=== PATIENT | male | born 1995 | race Caucasian/White ===

== ENCOUNTER 2018-09-09 20:10 | Emergency (ER) | payer OTHER ==
[2018-09-09] MEDS ORDERED: Lidocaine 1% with EPINEPHrine 1:100,000 20 ML MDV INJECT ONE (20:29)
[2018-09-09] MEDS ORDERED: Cephalexin 500 MG Cap PO ONE (20:29)
--- NOTE | 2018-09-09 20:35 | EDM.PDOC ---
ED HPI GENERAL MEDICAL PROBLEM - General Chief Complaint: Skin Complaint Stated Complaint: FISH HOOK STUCK IN LEFT HAND Time Seen by Provider: 09/09/18 20:26 - History of Present Illness INITIAL COMMENTS - FREE TEXT/NARRATIVE: HISTORY AND PHYSICAL: History of present illness: The patient is a healthy 22-year-old male who says he is up-to-date on his tetanus shot a presents after getting a fish hook stuck into the thenar eminence near his thumb on his left hand. The patient says he is right-hand dominant and he attempted to try to extract this with pliers but says that it's really stuck. He has no other complaints and says he only has localized pain to the area and has full motion of his thumb and the remainder of the digits of the left hand. He says he has no other associated injuries and was in his usual state of good health prior to these events. Review of systems: As per history of present illness and below otherwise all systems reviewed and negative. Past medical history: As per history of present illness and as reviewed below otherwise noncontributory. Surgical history: As per history of present illness and as reviewed below otherwise noncontributory. Social history: No reported history of drug or alcohol abuse. Family history: As per history of present illness and as reviewed below otherwise noncontributory. Physical exam: General: Well-developed well-nourished man who is nontoxic and vital signs are noted by me HEENT: Atraumatic, normocephalic, negative for conjunctival pallor or scleral icterus, mucous membranes moist, throat clear, neck supple, nontender, trachea midline. Lungs: Clear to auscultation, breath sounds equal bilaterally, chest nontender. Heart: S1S2, regular rate and rhythm no overt murmurs Abdomen: Soft, nondistended, nontender. NABS Pelvis: Deferred Genitourinary: Deferred. Rectal: Deferred. Extremities: Atraumatic, full range of motion of all extremities with the exception of the left hand where at the thenar eminence a fishhook is seen stuck with no surrounding erythema and minimal soft tissue swelling. The patient can oppose flex and extend at the thumb without deficits. Neurovascular unremarkable. Neuro: Awake, alert, oriented. Cranial nerves II through XII unremarkable. Cerebellum unremarkable. Motor and sensory unremarkable throughout. Exam nonfocal. Diagnostics: X-ray left hand Therapeutics: Keflex, lidocaine with epinephrine for hook removal I discussed with the patient that due to the direction of the bevel certain text weeks to remove this are not available and due to the location of where this with he has I cannot push it through cut off the bevel tip and remove the clock. He is aware that we'll need to know him the area locally extend the opening where the hook is penetrating and remove the clock manually. He understands there will be tissue damage with this and he will need to be followed by a hand specialist for possible infection although we will cover him with Keflex. He states understanding. Procedure note: After the procedure was explained to the patient and the x-ray was reviewed area of the hand was infused with lidocaine with epinephrine in a local fashion and prepped with Betadine. Using an 11 blade scalpel the entry point was extended and the hook was removed with manual traction without complication. Bleeding was controlled. There were no complications the patient tolerated the procedure well. Bacitracin and a gauze dressing were placed. This procedure was performed by William Vallejo NP. Impression: Hannah to left hand/puncture wound with tissue damage Definitive disposition and diagnosis as appropriate pending reevaluation and review of above. Left Hand Pain Score (Numeric/FACES): 5 - Related Data Allergies Allergy/AdvReac Type Severity Reaction Status Date / Time No Known Allergies Allergy Verified 09/09/18 20:29 Home Meds: Home Meds . [No Known Home Meds] 03/14/18 [History] Past Medical History - Past Surgical History HEENT Surgical History: Reports: Oral Surgery Social & Family History - Family History Family Medical History: Noncontributory - Caffeine Use Caffeine Use: Reports: None ED ROS GENERAL - Review of Systems Review Of Systems: ROS reveals no pertinent complaints other than HPI. ED EXAM, SKIN/RASH Exam: See Below (See dictation) Course - Vital Signs Last Recorded V/S: Last Vital Signs Temp 36.6 C 09/09/18 20:26 Pulse 88 09/09/18 20:26 Resp 18 09/09/18 20:26 BP 123/65 09/09/18 20:26 Pulse Ox 98 09/09/18 20:26 - Orders/Labs/Meds Meds: Medications Discontinued Medications Generic Name Dose Route Start Last Admin Trade Name Freq PRN Reason Stop Dose Admin Cephalexin 500 mg 09/09/18 20:29 09/09/18 20:40 Keflex PO 09/09/18 20:30 500 mg ONETIME ONE Administration Lidocaine/Epinephrine 20 ml 09/09/18 20:29 09/09/18 20:40 Xylocaine 1% With Epinephrine 1:100,000 INJECT 09/09/18 20:30 20 ml ONETIME ONE Administration Departure - Departure Time of Disposition: 21:53 Disposition: Home, Self-Care 01 Condition: Good Clinical Impression: Puncture wound of left hand Qualifiers: Encounter type: initial encounter Foreign body presence: with foreign body Qualified Code(s): S61.442A - Puncture wound with foreign body of left hand, initial encounter - Discharge Information Referrals: PCP,None [Primary Care Provider] - Forms: ED Department Discharge Additional Instructions: The following information is given to patients seen in the emergency department who are being discharged to home. This information is to outline your options for follow-up care. We provide all patients seen in our emergency department with a follow-up referral. The need for follow-up, as well as the timing and circumstances, are variable depending upon the specifics of your emergency department visit. If you don't have a primary care physician on staff, we will provide you with a referral. We always advise you to contact your personal physician following an emergency department visit to inform them of the circumstance of the visit and for follow-up with them and/or the need for any referrals to a consulting specialist. The emergency department will also refer you to a specialist when appropriate. This referral assures that you have the opportunity for followup care with a specialist. All of these measure are taken in an effort to provide you with optimal care, which includes your followup. Under all circumstances we always encourage you to contact your private physician who remains a resource for coordinating your care. When calling for followup care, please make the office aware that this follow-up is from your recent emergency room visit. If for any reason you are refused follow-up, please contact the [facility] emergency department at and ask to speak to the emergency department charge nurse. Dr. Mango Mcallister [facility] [address] [place] [id number] @ Dr Bolaños & Dr Fermin [facility] [address] [place] [address] @ Dr Antony [facility] [address] [facility] [id number] Keep the wound clean and dry using mild soap and water patch and apply bacitracin or Neosporin. This is a puncture wound and has a possibility for infection so you have been placed on Keflex for prophylaxis. Please call and schedule a follow-up appointment with one of our hand specialist using resources given to above keeping in mind that the closest would be at [facility]. Our hand specialist is on maternity leave and is not available for follow-up cases. Return to ER as needed and as discussed
--- NOTE | 2018-09-09 21:22 | CR ---
INDICATION: Foreign body TECHNIQUE: Hand radiograph 2 views left COMPARISON: None FINDINGS: Bone: No acute fractures or aggressive bone lesions are identified. Joint: The carpal and metacarpal-phalangeal joints are unremarkable in appearance. The interphalangeal joints are normal in appearance. Soft tissue: A multi-pronged metallic hook is seen in the soft tissues of the thenar eminence. IMPRESSIONS: 1. No acute osseous injuries or abnormalities are noted. 2. A multi-pronged metallic hook is seen in the soft tissues of the thenar eminence. Dictated by Chandana Fink MD @ 09/09/2018 9:20:48 PM Dictated by: Chandana Fink MD @ 09/09/2018 21:21:05 (Electronically Signed)
[2018-09-09] MEDS ORDERED: Bacitracin Oint 1 GM U/D Packet TOP ONE (21:54)
== END 2018-09-09 22:05 | disposition home or self-care (01) ==
LOC: MW.ED 20:10
DX: S61.442A Puncture wound with foreign body of left hand, initial encounter (principal); Z98.890 Other specified postprocedural states; W45.8XXA Other foreign body or object entering through skin, initial encounter
CPT/HCPCS: 10120; 73120; 99283; A9270

== ENCOUNTER 2019-03-16 20:25 | Emergency (ER) | payer OTHER ==
--- NOTE | 2019-03-16 20:37 | EDM.PDOC ---
ED HPI GENERAL MEDICAL PROBLEM - General Chief Complaint: General Stated Complaint: DIZZY, COLD AND COUGHING Time Seen by Provider: 03/16/19 20:36 Source of Information: Reports: Patient History Limitations: Reports: No Limitations - History of Present Illness INITIAL COMMENTS - FREE TEXT/NARRATIVE: HISTORY AND PHYSICAL: History of present illness: Patient is a 23-year-old male presents to the ED today with concern of cough, sore throat, and generalized body aches over the past 1-2 days. Patient states he does smoke about one cigarette a day and also uses the vaporizer daily. Patient states that he has been taking some [id number] cold medication with mild relief of symptoms. Patient denies any health history or any other symptoms or concerns. Patient denies fever, chills, chest pain, shortness of breath. Denies headache, neck stiff ness, change in vision, syncope, or near syncope. Denies nausea, vomiting, abdominal pain, diarrhea, constipation, or dysuria. Has not noted any blood in urine or stool. Patient has been eating and drinking appropriately. Review of systems: As per history of present illness and below otherwise all systems reviewed and negative. Past medical history: As per history of present illness and as reviewed below otherwise noncontributory. Surgical history: As per history of present illness and as reviewed below otherwise noncontributory. Social history: See social history for further information Family history: As per history of present illness and as reviewed below otherwise noncontributory. Physical exam: General: Patient is alert, oriented, and in no acute distress. Patient laying comfortably on exam table. HEENT: Atraumatic, normocephalic, pupils equal and reactive bilaterally, negative for conjunctival pallor or scleral icterus, mucous membranes moist, TMs normal bilaterally, throat clear, neck supple, nontender, trachea midline. No drooling or trismus noted. No meningeal signs. No hot potato voice noted. Lungs: Clear to auscultation, breath sounds equal bilaterally, chest nontender. Dry cough on exam Heart: S1S2, regular rate and rhythm without overt murmur Abdomen: Soft, nondistended, nontender. Negative for masses or hepatosplenomegaly. Negative for costovertebral tenderness. Pelvis: Stable nontender. Genitourinary: Deferred. Rectal: Deferred. Skin: Intact, warm, dry. No lesions or rashes noted. Extremities: Atraumatic, negative for cords or calf pain. Neurovascular unremarkable. Neuro: Awake, alert, oriented. Cranial nerves II through XII unremarkable. Cerebellum unremarkable. Motor and sensory unremarkable throughout. Exam nonfocal. Notes: Discussed the importance for follow-up with primary care provider. Voices understanding and is agreeable to plan of care. Denies any further questions or concerns at this time. Diagnostics: EKG, chest x-ray, influenza, strep Therapeutics: Duoneb, Solumedrol Prescription: Proair inhaler, Tamiflu Impression: Influenza B Plan: 1. Take medication as prescribed. You can alternate ibuprofen and Tylenol as directed for pain or discomfort. 2. Follow-up with a primary care provider as discussed. Return to ED as needed and as discussed. Definitive disposition and diagnosis as appropriate pending reevaluation and review of above. Generalized Pain Score (Numeric/FACES): 7 - Related Data Allergies Allergy/AdvReac Type Severity Reaction Status Date / Time No Known Allergies Allergy Verified 03/16/19 20:30 Home Meds: Home Meds Albuterol Sulfate [Proair Hfa] 8.5 gm IH Q8HR PRN #1 [email or web address] 03/16/19 [Rx] methylPREDNISolone [Medrol] 4 mg PO ASDIRECTED #1 dosepk 03/16/19 [Rx] Past Medical History - Infectious Disease History Infectious Disease History: Reports: None - Past Surgical History HEENT Surgical History: Reports: Oral Surgery Social & Family History - Family History Family Medical History: Noncontributory - Tobacco Use Smoking Status *Q: Never Smoker Second Hand Smoke Exposure: No - Caffeine Use Caffeine Use: Reports: None - Recreational Drug Use Recreational Drug Use: No ED ROS GENERAL - Review of Systems Review Of Systems: Comprehensive ROS is negative, except as noted in HPI. ED EXAM, GENERAL - Physical Exam Exam: See Below (see dictation) Course - Vital Signs Last Recorded V/S: Last Vital Signs Temp 98.8 F 03/16/19 20:31 Pulse 96 03/16/19 20:31 Resp 16 03/16/19 20:31 BP 135/75 03/16/19 20:31 Pulse Ox 96 03/16/19 20:31 - Orders/Labs/Meds Orders: Active Orders 24 hr Category Date Time Status EKG Documentation Completion [RC] STAT Care 03/16/19 20:41 Active RT Aerosol Therapy [RC] ASDIRECTED Care 03/16/19 20:43 Active CBC WITH AUTO DIFF [HEME] Stat Lab 03/16/19 20:41 Stop Req COMPREHENSIVE METABOLIC PN,CMP [CHEM] Stat Lab 03/16/19 20:41 Stop Req CULTURE STREP A CONFIRMATION [RM] Stat Lab 03/16/19 20:44 Results STREP SCRN A RAPID W CULT CONF [RM] Stat Lab 03/16/19 20:44 Results UA RFX MADYSON AND CULT IF INDIC [URIN] Stat Lab 03/16/19 21:12 Stop Req Meds: Medications Discontinued Medications Generic Name Dose Route Start Last Admin Trade Name Freq PRN Reason Stop Dose Admin Albuterol/Ipratropium 3 ml 03/16/19 20:43 03/16/19 20:52 Duoneb 3.0-0.5 Mg/3 Ml NEB 03/16/19 20:44 3 ml ONETIME ONE Administration Methylprednisolone Sodium Succinate 125 mg 03/16/19 20:43 03/16/19 20:52 Solu-Medrol IM 03/16/19 20:44 125 mg ONETIME ONE Administration Departure - Departure Time of Disposition: 21:16 Disposition: Home, Self-Care 01 Clinical Impression: Influenza B - Discharge Information Prescriptions: Albuterol Sulfate [Proair Hfa] 8.5 gm IH Q8HR PRN #1 [id number] PRN Reason: Cough methylPREDNISolone [Medrol] 4 mg PO ASDIRECTED #1 dosepk Referrals: PCP,None [Primary Care Provider] - Forms: ED Department Discharge Additional Instructions: The following information is given to patients seen in the emergency department who are being discharged to home. This information is to outline your options for follow-up care. We provide all patients seen in our emergency department with a follow-up referral. The need for follow-up, as well as the timing and circumstances, are variable depending upon the specifics of your emergency department visit. If you don't have a primary care physician on staff, we will provide you with a referral. We always advise you to contact your personal physician following an emergency department visit to inform them of the circumstance of the visit and for follow-up with them and/or the need for any referrals to a consulting specialist. The emergency department will also refer you to a specialist when appropriate. This referral assures that you have the opportunity for follow-up care with a specialist. All of these measure are taken in an effort to provide you with optimal care, which includes your follow-up. Under all circumstances we always encourage you to contact your private physician who remains a resource for coordinating your care. When calling for follow-up care, please make the office aware that this follow-up is from your recent emergency room visit. If for any reason you are refused follow-up, please contact the [facility] Emergency Department at and asked to speak to the emergency department charge nurse. [facility] [address] [place] [id number] [facility] [address] [place] [id number] 1. Take medication as prescribed. You can alternate ibuprofen and Tylenol as directed for pain or discomfort. 2. Follow-up with a primary care provider as discussed. Return to ED as needed and as discussed. Sepsis Event Note - Evaluation Sepsis Screening Result: No Definite Risk - Focused Exam Vital Signs: Vital Signs Temp Pulse Resp BP Pulse Ox 03/16/19 20:31 98.8 F 96 16 135/75 96 Date Exam was Performed: 03/16/19 Time Exam was Performed: 21:16 - My Orders Last 24 Hours: My Active Orders 03/16/19 20:41 EKG Documentation Completion [RC] STAT CBC WITH AUTO DIFF [HEME] Stat COMPREHENSIVE METABOLIC PN,CMP [CHEM] Stat 03/16/19 20:43 RT Aerosol Therapy [RC] ASDIRECTED 03/16/19 20:44 CULTURE STREP A CONFIRMATION [RM] Stat STREP SCRN A RAPID W CULT CONF [RM] Stat 03/16/19 21:12 UA RFX MADYSON AND CULT IF INDIC [URIN] Stat - Assessment/Plan Last 24 Hours: My Active Orders 03/16/19 20:41 EKG Documentation Completion [RC] STAT CBC WITH AUTO DIFF [HEME] Stat COMPREHENSIVE METABOLIC PN,CMP [CHEM] Stat 03/16/19 20:43 RT Aerosol Therapy [RC] ASDIRECTED 03/16/19 20:44 CULTURE STREP A CONFIRMATION [RM] Stat STREP SCRN A RAPID W CULT CONF [RM] Stat 03/16/19 21:12 UA RFX MADYSON AND CULT IF INDIC [URIN] Stat
[2019-03-16] MEDS ORDERED: methylPREDNISolone Sodium Succinate 125 MG/2 ML SDV IM ONE (20:43)
[2019-03-16] MEDS ORDERED: Albuterol/Ipratropium 3.0-0.5 MG/3 ML Neb Soln NEB ONE (20:43)
--- NOTE | 2019-03-16 20:59 | CR ---
INDICATION: Cough, flu like symptoms TECHNIQUE: Chest radiograph 2 views COMPARISON: None FINDINGS: Mediastinum: The mediastinum is normal in appearance. The heart silhouette is normal in size and morphology. Lung: Both lungs are unremarkable in appearance. No sign of pleural effusion seen. No pneumothorax is identified. Bone and Soft tissue: Unremarkable for age. IMPRESSION: 1. No acute cardiopulmonary disease is seen. Dictated by: Chandana Fink MD @ 03/16/2019 20:57:54 (Electronically Signed)
== END 2019-03-16 21:27 | disposition home or self-care (01) ==
LOC: MW.ED 20:25
DX: J10.1 Influenza due to other identified influenza virus with other respiratory manifestations (principal)
CPT/HCPCS: 71046; 87081; 87804; 87880; 93005; 94640; 96372; 99284; J2930; 99283; J7620-GY

== ENCOUNTER 2020-11-02 19:57 | Emergency (ER) | payer BC, OTHER ==
[2020-11-02] MEDS ORDERED: Sodium Chloride 0.9% 1,000 ML IV ONE (20:18)
[2020-11-02] MEDS: Ketorolac 30 MG/ML SDV IVPUSH ONE ×2 (20:33→21:06)
--- NOTE | 2020-11-02 20:45 | EDM.PDOC ---
ED HPI GENERAL MEDICAL PROBLEM - General Chief Complaint: General Stated Complaint: TROUBLE BREATHING BODY ACHES Time Seen by Provider: 11/02/20 20:12 Source of Information: Reports: Patient History Limitations: Reports: No Limitations - History of Present Illness INITIAL COMMENTS - FREE TEXT/NARRATIVE: HISTORY AND PHYSICAL: History of present illness: Patient is a 25-year-old male who presents to the emergency room with complaints of multiple symptoms. He states for the past 2 to 3 days he has had generalized body aches, bilateral flank pain, headache with intermittent blurred vision of the left eye, cough and shortness of breath. This morning he had woke up and voided, noting that the urine was pink-tinged and was concerned he was urinating blood. Patient denies any fever, chills, syncope or near syncope. Denies any abdominal pain, nausea, vomiting, diarrhea, constipation or dysuria. Denies any testicular pain, redness or swelling. No concern for STIs. Has not noted any bloody stools. Patient has been eating and drinking appropriately. Denies any recent travel. No known sick contacts. Review of systems: As per history of present illness and below otherwise all systems reviewed and negative. Past medical history: As per history of present illness and as reviewed below otherwise noncontributory. Surgical history: As per history of present illness and as reviewed below otherwise noncontributory. Social history: See social history for further information Family history: As per history of present illness and as reviewed below otherwise non contributory. Physical exam: General: Well developed and well nourished 25-year-old male. Alert and orientated x 3. Nontoxic in appearance and in no acute distress. Vital signs are stable and have been reviewed by me. Nursing notes were reviewed. HEENT: Atraumatic, normocephalic, pupils equal and reactive bilaterally, negative for conjunctival pallor or scleral icterus, mucous membranes moist, t rachea midline. No drooling or trismus noted. No meningeal signs. No hot potato voice noted. Lungs: Clear to auscultation bilaterally. No wheezes, rales, or rhonchi. Chest nontender. Normal work of breathing, no accessory muscles used. Heart: S1S2, regular rate and rhythm without overt murmur, gallops, or rubs. No JVD. No peripheral edema Abdomen: Soft, nondistended, nontender. Normoactive bowel sounds. Negative for masses. Bilateral costovertebral tenderness. Pelvis: Stable nontender. Skin: Intact, warm, dry. No lesions or rashes noted. Hematologic: No petechiae or purpra. Mucosa appropriate color and normal nail bed color and refill. Extremities: Atraumatic, moves all extremities per self without difficulty or deficits, negative for cords or calf pain. Neurovascular unremarkable. Neuro: Awake, alert, oriented. Cranial nerves II through XII unremarkable. Cerebellum unremarkable. Motor and sensory unremarkable throughout. Exam nonfocal. Psychiatric: Mood and affect are appropriate. Normal thought process. Answering questions appropriately. Notes: *This patient was seen and evaluated during the 2019 SARS-CoV-2 novel coronavirus pandemic period. Community viral transmission is ongoing at time of this encounter and the emergency department is operating under pandemic response procedures. Patient is a 25-year-old male who presents to the emergency room with multiple complaints including hematuria, headache with blurred vision of the left eye, cough, shortness of breath and headache. Patient's physical exam is unremarkable with the exception of bilateral flank pain to palpation. I do note that the patient is wearing a weightlifting T-Shirt, he did inquire about use of steroids or new supplements, he denies. We will do basic lab work and head CT as he states he typically does not get headaches and is concerned about the blurred vision. CXR shows no pleural effusion or pneumothorax. Faint density adjacent to the left heart border consistent with minimal atelectasis or pneumonia. Patient did test positive for COVID-19. His vital signs remained stable. Lab work is otherwise unremarkable. I have talked with the patient about today's findings, in addition to providing specific details for plan of care. Reassessment at the time of disposition demonstrates that the patient is in no acute distress. The patient is stable for discharge, counseling was provided and we discussed in great detail signs and symptoms that would prompt them to return to the Emergency Department. Medication, follow up and supportive care measures were reviewed and discussed. Voices understanding and is agreeable to plan of care. Denies any further questions or concerns at this time. Diagnostics: CBC, CMP, UA, CPK, chest x-ray, Covid, strep, head CT Therapeutics: IV fluid, Toradol Prescription: Tylenol with codeine Impression: COVID-19 Plan: 1. Your COVID-19 screening is positive. That means you do have the coronavirus and you are considered contagious. Your vital signs and oxygen saturation are well enough that you were able to monitor your symptoms at home. Continue to monitor for trouble breathing, new confusion or inability to arouse, bluish lips or face or any of the other symptoms we discussed -if this occurs please return to the emergency room immediately. 2. Please self quarantine until cleared by [facility] Department. Inform any persons that you have been in contact with since you started becoming symptomatic that you have tested positive; they should be made aware and take the appropriate steps as needed. 3. You can take NyQuil during the evening to help get a restful night sleep. May alternate Tylenol and ibuprofen as needed for pain and fever management. 4. The [facility] department will be calling you and following up with you. The [place] COVID 19 Hotline phone number , They are open Sunday - Sunday 7am - 7pm. Follow up with your primary care provider for re-evaluation as directed. Definitive disposition and diagnosis as appropriate pending reevaluation and review of above. chest pain Pain Score (Numeric/FACES): 5 - Related Data Allergies Allergy/AdvReac Type Severity Reaction Status Date / Time No Known Allergies Allergy Verified 11/02/20 20:06 Home Meds: Home Meds Dextroamphetamine/Amphetamine [Adderall 20 mg Tablet] 20 mg PO DAILY 11/02/20 [History] Past Medical History Cardiovascular History: Reports: None Respiratory History: Reports: None Gastrointestinal History: Reports: None Genitourinary History: Reports: None Musculoskeletal History: Reports: None Neurological History: Reports: None Psychiatric History: Reports: ADHD Endocrine/Metabolic History: Reports: None Insulin Pump Model and Laboratory Worker: None Hematologic History: Reports: None Immunologic History: Reports: None Oncologic (Cancer) History: Reports: None Dermatologic History: Reports: None - Infectious Disease History Infectious Disease History: Reports: None - Past Surgical History Head Surgeries/Procedures: Reports: None HEENT Surgical History: Reports: Oral Surgery Social & Family History - Family History Family Medical History: No Pertinent Family History - Caffeine Use Caffeine Use: Reports: None ED ROS GENERAL - Review of Systems Review Of Systems: Comprehensive ROS is negative, except as noted in HPI. ED EXAM, GENERAL - Physical Exam Exam: See Below (See dictation) Course - Vital Signs Last Recorded V/S: Last Vital Signs Temp 97.5 F 11/02/20 20:07 Pulse 89 11/02/20 20:07 Resp 18 11/02/20 20:07 BP 131/77 11/02/20 20:07 Pulse Ox 97 11/02/20 20:07 - Orders/Labs/Meds Labs: Laboratory Tests 11/02/20 11/02/20 11/02/20 Range/Units 20:44 20:44 21:00 WBC 4.79 (4.0-11.0) K/uL RBC 4.77 (4.50-5.90) M/uL Hgb 14.6 (13.0-17.0) g/dL Hct 42.6 (38.0-50.0) % MCV 89.3 (80.0-98.0) fL MCH 30.6 (27.0-32.0) pg MCHC 34.3 (31.0-37.0) g/dL RDW Std Deviation 44.8 (28.0-62.0) fl RDW Coeff of Angella 14 (11.0-15.0) % Plt Count 139 L (150-400) K/uL MPV 11.10 (7.40-12.00) fL Neut % (Auto) 53.7 (48.0-80.0) % Lymph % (Auto) 27.1 (16.0-40.0) % [place] % (Auto) 19.0 H (0.0-15.0) % Eos % (Auto) 0.2 (0.0-7.0) % Baso % (Auto) 0.0 (0.0-1.5) % Neut # (Auto) 2.6 (1.4-5.7) K/uL Lymph # (Auto) 1.3 (0.6-2.4) K/uL [place] # (Auto) 0.9 H (0.0-0.8) K/uL Eos # (Auto) 0.0 (0.0-0.7) K/uL Baso # (Auto) 0.0 (0.0-0.1) K/uL Nucleated RBC % 0.0 /100WBC Nucleated RBCs # 0 K/uL Sodium (136-148) mmol/L Potassium (3.5-5.1) mmol/L Chloride (98-107) mmol/L Carbon Dioxide (21.0-32.0) mmol/L BUN (7.0-18.0) mg/dL Creatinine (0.8-1.3) mg/dL Est Cr Clr Drug Dosing mL/min Estimated GFR (MDRD) ml/min Glucose (74-106) mg/dL Calcium (8.5-10.1) mg/dL Total Bilirubin (0.2-1.0) mg/dL AST (15-37) IU/L ALT (14-63) IU/L Alkaline Phosphatase (46-116) U/L Creatine Kinase (26-308) U/L Total Protein (6.4-8.2) g/dL Albumin (3.4-5.0) g/dL Globulin (2.6-4.0) g/dL Albumin/Globulin Ratio (0.9-1.6) Urine Color Urine Appearance Urine pH (5.0-8.0) Ur Specific [place] (1.001-1.035) Urine Protein (NEGATIVE) mg/dL Urine Glucose (UA) (NEGATIVE) mg/dL Urine Ketones (NEGATIVE) mg/dL Urine Occult Blood (NEGATIVE) Urine Nitrite (NEGATIVE) Urine Bilirubin (NEGATIVE) Urine Urobilinogen (<2.0) EU/dL Ur Leukocyte Esterase (NEGATIVE) SARS-CoV-2 RNA (LE) POSITIVE H (NEGATIVE) Group A Strep (PCR) NOT DETECTED (NOT DETECT) 11/02/20 11/02/20 Range/Units 21:00 21:02 WBC (4.0-11.0) K/uL RBC (4.50-5.90) M/uL Hgb (13.0-17.0) g/dL Hct (38.0-50.0) % MCV (80.0-98.0) fL MCH (27.0-32.0) pg MCHC (31.0-37.0) g/dL RDW Std Deviation (28.0-62.0) fl RDW Coeff of Angella (11.0-15.0) % Plt Count (150-400) K/uL MPV (7.40-12.00) fL Neut % (Auto) (48.0-80.0) % Lymph % (Auto) (16.0-40.0) % [place] % (Auto) (0.0-15.0) % Eos % (Auto) (0.0-7.0) % Baso % (Auto) (0.0-1.5) % Neut # (Auto) (1.4-5.7) K/uL Lymph # (Auto) (0.6-2.4) K/uL [place] # (Auto) (0.0-0.8) K/uL Eos # (Auto) (0.0-0.7) K/uL Baso # (Auto) (0.0-0.1) K/uL Nucleated RBC % /100WBC Nucleated RBCs # K/uL Sodium 142 (136-148) mmol/L Potassium 3.8 (3.5-5.1) mmol/L Chloride 108 H (98-107) mmol/L Carbon Dioxide 25.6 (21.0-32.0) mmol/L BUN 11 (7.0-18.0) mg/dL Creatinine 1.4 H (0.8-1.3) mg/dL Est Cr Clr Drug Dosing 74.76 mL/min Estimated GFR (MDRD) > 60.0 ml/min Glucose 96 (74-106) mg/dL Calcium 8.3 L (8.5-10.1) mg/dL Total Bilirubin 0.3 (0.2-1.0) mg/dL AST 20 (15-37) IU/L ALT 29 (14-63) IU/L Alkaline Phosphatase 58 (46-116) U/L Creatine Kinase 192 (26-308) U/L Total Protein 6.7 (6.4-8.2) g/dL Albumin 3.8 (3.4-5.0) g/dL Globulin 2.9 (2.6-4.0) g/dL Albumin/Globulin Ratio 1.3 (0.9-1.6) Urine Color YELLOW Urine Appearance CLEAR Urine pH 5.5 (5.0-8.0) Ur Specific [place] >= 1.030 (1.001-1.035) Urine Protein NEGATIVE (NEGATIVE) mg/dL Urine Glucose (UA) NEGATIVE (NEGATIVE) mg/dL Urine Ketones NEGATIVE (NEGATIVE) mg/dL Urine Occult Blood NEGATIVE (NEGATIVE) Urine Nitrite NEGATIVE (NEGATIVE) Urine Bilirubin NEGATIVE (NEGATIVE) Urine Urobilinogen 0.2 (<2.0) EU/dL Ur Leukocyte Esterase NEGATIVE (NEGATIVE) SARS-CoV-2 RNA (LE) (NEGATIVE) Group A Strep (PCR) (NOT DETECT) Meds: Medications Discontinued Medications Generic Name Dose Route Start Last Admin Trade Name Martínq PRN Reason Stop Dose Admin Sodium Chloride 1,000 mls @ 999 mls/hr 11/02/20 20:18 11/02/20 20:32 Normal Saline IV 11/02/20 21:18 999 mls/hr STAT ONE Administration Ketorolac Tromethamine 30 mg 11/02/20 20:18 11/02/20 21:06 Ketorolac 30 Mg/Ml Sdv IVPUSH 11/02/20 20:19 Not Given ONETIME ONE Departure - Departure Time of Disposition: 21:55 Disposition: Home, Self-Care 01 Clinical Impression: COVID-19 - Discharge Information Instructions: COVID-19 Referrals: PCP,None [Primary Care Provider] - Forms: ED Department Discharge Additional Instructions: The following information is given to patients seen in the emergency department who are being discharged to home. This information is to outline your options for follow-up care. We provide all patients seen in our emergency department with a follow-up referral. The need for follow-up, as well as the timing and circumstances, are variable depending upon the specifics of your emergency department visit. If you don't have a primary care physician on staff, we will provide you with a referral. We always advise you to contact your personal physician following an emergency department visit to inform them of the circumstance of the visit and for follow-up with them and/or the need for any referrals to a consulting specialist. The emergency department will also refer you to a specialist when appropriate. This referral assures that you have the opportunity for follow-up care with a specialist. All of these measure are taken in an effort to provide you with optimal care, which includes your follow-up. Under all circumstances we always encourage you to contact your private physician who remains a resource for coordinating your care. When calling for follow-up care, please make the office aware that this follow-up is from your recent emergency room visit. If for any reason you are refused follow-up, please contact the [facility] Emergency Department at and asked to speak to the emergency department charge nurse. [facility] [address] [place] [address] [facility] [address] [place] [address] Thank you for choosing the [facility] emergency department in [place] for your medical needs today. It was a pleasure caring for you. Today you were seen in the emergency department for COVID-19. 1. Your COVID-19 screening is positive. That means you do have the coronavirus and you are considered contagious. Your vital signs and oxygen saturation are well enough that you were able to monitor your symptoms at home. Continue to monitor for trouble breathing, new confusion or inability to arouse, bluish lips or face or any of the other symptoms we discussed -if this occurs please return to the emergency room immediately. 2. Please self quarantine until cleared by [facility] Department. Inform any persons that you have been in contact with since you started becoming symptomatic that you have tested positive; they should be made aware and take the appropriate steps as needed. 3. You can take NyQuil during the evening to help get a restful night sleep. May alternate Tylenol and ibuprofen as needed for pain and fever management. 4. The [facility] department will be calling you and following up with you. The [place] COVID 19 Hotline phone number , They are open Sunday - Sunday 7am - 7pm. Follow up with your primary care provider for re-evaluation as directed. Sepsis Event Note (ED) - Evaluation Sepsis Screening Result: No Definite Risk - Focused Exam Vital Signs: Vital Signs Temp Pulse Resp BP Pulse Ox 11/02/20 20:07 97.5 F 89 18 131/77 97
--- NOTE | 2020-11-02 20:57 | CR ---
Indication: Cough Technique: Chest 1 view Comparison: Chest x-ray 03/16/2019 Findings/Impression: Cardiovascular and mediastinum: Heart size and vasculature are normal in caliber and appearance. Lungs and pleural space: No pleural effusion or pneumothorax. Faint density adjacent to the left heart border consistent with minimal atelectasis or pneumonia. Bones and soft tissues: No acute findings. Dictated by Maverick Rice MD @ 11/02/2020 8:56:[address] Maverick Rice @ Nov 02 2020 8:56PM
--- NOTE | 2020-11-02 21:03 | CT ---
INDICATION: Headache and blurred vision TECHNIQUE: CT head without contrast. COMPARISON: None. FINDINGS: CSF spaces: Within normal limits for age. Brain parenchyma: The allison-white differentiation is normal. No sign of mass, hemorrhage, or midline shift. Skull base and calvarium: Minimal mucus retention cysts maxillary sinuses. The visualized orbits are grossly unremarkable. No skull fractures. IMPRESSION: Unremarkable noncontrast head CT. Please note that all CT scans at this facility use dose modulation, iterative reconstruction, and/or weight-based dosing when appropriate to reduce radiation dose to as low as reasonably achievable. Dictated by Maverick Rice MD @ 11/02/2020 9:01:[address] Maverick Rice @ Nov 02 2020 9:01PM
[2020-11-02 21:49] LABS: BLOOD UREA NITROGEN,BUN 11 mg/dL (7.0-18.0); CARBON DIOXIDE,CO2 25.6 mmol/L (21.0-32.0); CHLORIDE,CL 108 mmol/L (98-107); GLUCOSE RANDOM 96 mg/dL (74-106); POTASSIUM,K 3.8 mmol/L (3.5-5.1); SODIUM,NA 142 mmol/L (136-148)
== END 2020-11-02 22:07 | disposition home or self-care (01) ==
LOC: MW.ED 19:57
DX: U07.1 COVID-19 (principal)
CPT/HCPCS: 36415; 70450; 71045; 80053; 81003; 82550; 85025; 87635; 87651; 99284; J7030; J1885; U0002

== ENCOUNTER 2021-07-22 10:30 | Emergency (ER) | payer BC ==
[2021-07-22] MEDS ORDERED: Sodium Chloride 0.9% 10 ML Syringe FLUSH PRN (10:56)
[2021-07-22] MEDS ORDERED: Sodium Chloride 0.9% 1,000 ML IV ONE (10:56)
[2021-07-22] MEDS ORDERED: Ondansetron 4 MG/2 ML SDV IVPUSH ONE (10:56)
[2021-07-22] MEDS ORDERED: Sodium Chloride 0.9% 2.5 ML Syringe FLUSH PRN (10:56)
[2021-07-22] MEDS ORDERED: Ketorolac 30 MG/ML SDV IVPUSH ONE (11:16)
[2021-07-22] MEDS ORDERED: HYDROmorphone 1 MG/ML Syringe IVPUSH ONE ×2 (11:16→13:31)
[2021-07-22 11:19] LABS: BLOOD UREA NITROGEN,BUN 16 mg/dL (7.0-18.0); CARBON DIOXIDE,CO2 25.4 mmol/L (21.0-32.0); CHLORIDE,CL 105 mmol/L (98-107); GLUCOSE RANDOM 107 mg/dL (74-106); LIPASE 105 U/L (73-393); POTASSIUM,K 4.1 mmol/L (3.5-5.1); SODIUM,NA 142 mmol/L (136-148)
[2021-07-22 13:48] LABS: CORONAVIRUS COVID-19 NAA NEGATIVE (NEGATIVE); INFLUENZA A NAA NEGATIVE (NEGATIVE); INFLUENZA B NAA NEGATIVE (NEGATIVE)
[2021-07-22] MEDS ORDERED: Iopamidol 755 MG/ML 500 ML Multipack Bottle IVPUSH ONE (14:52)
== END 2021-07-22 15:00 | disposition home or self-care (01) ==
LOC: MW.ED 10:30
DX: K52.9 Noninfective gastroenteritis and colitis, unspecified (principal); Z20.822 Contact with and (suspected) exposure to COVID-19
CPT/HCPCS: 0240U; 36415; 74177; 80053; 81003; 83690; 85025; 87045; 87046; 87324; 87328; 87329; 87449; 87899; 96374; 96375; 96376; 99284; J1170; J1885; J2405; J3490; J7030; Q9967

== ENCOUNTER 2022-02-13 18:25 | Emergency (ER) | payer BC ==
[2022-02-13] MEDS ORDERED: Ibuprofen 600 MG Tab PO ONE (20:09)
[2022-02-13 20:32] LABS: CORONAVIRUS COVID-19 NAA POSITIVE (NEGATIVE); INFLUENZA A NAA NEGATIVE (NEGATIVE); INFLUENZA B NAA NEGATIVE (NEGATIVE)
== END 2022-02-13 21:05 | disposition home or self-care (01) ==
LOC: MW.ED 18:25
DX: U07.1 COVID-19 (principal)
CPT/HCPCS: 0240U; 71045; 99283; A9270